=== PATIENT | female | born 1965 | race African-American/Black ===

== ENCOUNTER 2016-12-09 15:56 | Emergency (ER) | payer BC ==
[2016-12-09 16:14] VITALS: BP 152/103
[2016-12-09] MEDS ORDERED: Ketorolac 60 MG/2 ML SDV IM ONE (17:16)
[2016-12-09] MEDS ORDERED: diphenhydrAMINE 50 MG/ML SDV IM ONE (17:16)
[2016-12-09] MEDS ORDERED: Metoclopramide 10 MG/2 ML SDV IM ONE (17:16)
--- NOTE | 2016-12-09 17:30 | EDM.PDOC ---
ED HPI GENERAL MEDICAL PROBLEM - General Chief Complaint: Headache Stated Complaint: HEADACHE/VOMITING Time Seen by Provider: 12/09/16 17:00 Source of Information: Reports: Patient History Limitations: Reports: No Limitations - History of Present Illness INITIAL COMMENTS - FREE TEXT/NARRATIVE: 51-year-old female presents for evaluation treatment of a migraine headache. Patient reports headache began when she woke up this morning around 10 or 11 AM. She reports is located in between her eyes and spreads posteriorly. She reports associated symptoms of nausea, vomiting, blurry vision and photophobia. She reports she has a past medical history of migraine headaches and is currently on Imitrex. She took Imitrex without much symptom relief. She states that she vomited the Imitrex up. She reports this is similar to past migraines. The only difference is she is vomiting which she often only feels nauseated. No identifiable trigger. No fevers, neck pain, earaches or sore throat. Onset: Today Headache Pain Score (Numeric/FACES): 10 - Related Data Allergies Allergy/AdvReac Type Severity Reaction Status Date / Time No Known Allergies Allergy Verified 12/09/16 16:14 Home Meds: Home Meds Diltiazem HCl [Diltiazem 12Hr ER] 120 mg PO DAILY 03/24/16 [History] Venlafaxine [Effexor] 150 mg PO DAILY 03/24/16 [History] SUMAtriptan [Imitrex] 25 mg PO DAILY PRN 12/09/16 [History] Past Medical History Cardiovascular History: Reports: Hypertension Psychiatric History: Reports: Anxiety, Depression - Past Surgical History Female Surgical History: Reports: Endometrial Ablation Social & Family History - Family History Family Medical History: Noncontributory - Tobacco Use Smoking Status *Q: Never Smoker Second Hand Smoke Exposure: No - Caffeine Use Caffeine Use: Reports: Coffee, Soda - Recreational Drug Use Recreational Drug Use: No ED ROS GENERAL - Review of Systems Review Of Systems: See Below Constitutional: Reports: Other (reports photophobia). Denies: Fever, Decreased Appetite HEENT: Reports: Vision Change (reports blurry vision). Denies: Ear Pain, Throat Pain GI/Abdominal: Reports: Nausea, Vomiting Musculoskeletal: Denies: Neck Pain Neurological: Reports: Headache - Physical Exam Exam: See Below Exam Limited By: No Limitations General Appearance: Alert, WD/WN, No Apparent Distress Eye Exam: Bilateral Eye: EOMI, PERRL Ears: Normal External Exam, Normal Canal, Hearing Grossly Normal, Normal TMs Nose: Normal Inspection Throat/Mouth: Normal Inspection, Normal Lips, Normal Voice, No Airway Compromise Head Exam: Atraumatic, Normocephalic Neck: Normal Inspection, Non-Tender, Full Range of Motion Respiratory/Chest: No Respiratory Distress, Lungs Clear, Normal Breath Sounds Cardiovascular: Normal Peripheral Pulses, Regular Rate, Rhythm, No Murmur Neuro Exam (Abbreviated): Alert, Oriented, CN II-XII Intact, Normal Cognition Psychiatric: Normal Affect, Normal Mood Skin Exam: Warm, Dry, Normal Color Course - Vital Signs Last Recorded V/S: Last Vital Signs Temp 35.9 C 12/09/16 16:09 Pulse 78 12/09/16 18:57 Resp 16 12/09/16 18:57 BP 152/103 H 12/09/16 16:09 Pulse Ox 98 12/09/16 18:57 - Orders/Labs/Meds Meds: Medications Discontinued Medications Generic Name Dose Route Start Last Admin Trade Name Jeffrey PRN Reason Stop Dose Admin Diphenhydramine HCl 50 mg 12/09/16 17:16 12/09/16 17:25 Benadryl IM 12/09/16 17:17 50 mg ONETIME ONE Administration Ketorolac Tromethamine 60 mg 12/09/16 17:16 12/09/16 17:25 Toradol IM 12/09/16 17:17 60 mg ONETIME ONE Administration Metoclopramide HCl 10 mg 12/09/16 17:16 12/09/16 17:24 Reglan IM 12/09/16 17:17 10 mg ONETIME ONE Administration - Re-Assessments/Exams Free Text/Narrative Re-Assessment/Exam: 12/09/16 18:32 at this point the patient's headache is now a 2 out of 10. She feels comfortable going home. Discharge instructions as documented. Departure - Departure Time of Disposition: 18:38 Disposition: Home, Self-Care 01 Condition: Good Clinical Impression: Migraine - Discharge Information Instructions: Migraine Headache, [id number] Referrals: Josy Sanchez FLOTATION TENDER HELPER [Primary Care Provider] - Forms: ED Department Discharge, ED Return to Work/School Form Additional Instructions: go home and rest in a dark quiet room. make sure you are drinking plenty of fluids. Continue with your current plan of care. follow-up with your primary care provider for further management. Please return to the ER if your symptoms change or worsen.
== END 2016-12-09 18:58 | disposition home or self-care (01) ==
LOC: JD.ED 15:56
DX: G43.909 Migraine, unspecified, not intractable, without status migrainosus (principal); I10 Essential (primary) hypertension; Z79.899 Other long term (current) drug therapy
CPT/HCPCS: 96372; 99283; J1200; J1885; J2765

== ENCOUNTER 2017-07-29 17:02 | Emergency (ER) | payer BC ==
[2017-07-29 17:14] VITALS: BP 144/98
[2017-07-29] MEDS ORDERED: diphenhydrAMINE 50 MG/ML SDV IM ONE (17:38)
[2017-07-29] MEDS ORDERED: Ketorolac 60 MG/2 ML SDV IM ONE (17:38)
[2017-07-29] MEDS ORDERED: Metoclopramide 10 MG/2 ML SDV IM ONE (17:38)
--- NOTE | 2017-07-29 17:45 | EDM.PDOC ---
ED HPI GENERAL MEDICAL PROBLEM - General Chief Complaint: Headache Stated Complaint: HEADACHE Time Seen by Provider: 07/29/17 17:20 Source of Information: Reports: Patient History Limitations: Reports: No Limitations - History of Present Illness INITIAL COMMENTS - FREE TEXT/NARRATIVE: 52-year-old female presents for evaluation and treatment of a migraine headache. Patient reports that after waking up she appreciated a migraine headache. She works nights and woke up around noon. Migraine started shortly afterwards, around 1300. Currently rates pain as 8/10. States his starts in the front near her sinuses and extends behind her head. Reports photophobia, phonophobia and nausea. No vomiting, vision changes, fevers, cough or chills. Patient has a history of migraine headaches. She is currently on Imitrex for these. She did take 2 doses prior to arrival in the ER which normally helps with her migraines. She was unable to get any relief with these. She has been seen in the ER on one of their location for migraine. Resolved well with IM Benadryl, Toradol and Reglan. Headache Pain Score (Numeric/FACES): 8 - Related Data Allergies Allergy/AdvReac Type Severity Reaction Status Date / Time No Known Allergies Allergy Verified 12/09/16 16:14 Home Meds: Home Meds Diltiazem HCl [Diltiazem 12Hr ER] 120 mg PO DAILY 03/24/16 [History] Venlafaxine [Effexor] 150 mg PO DAILY 03/24/16 [History] SUMAtriptan [Imitrex] 25 mg PO DAILY PRN 12/09/16 [History] Past Medical History Cardiovascular History: Reports: Hypertension Neurological History: Reports: Migraines Psychiatric History: Reports: Anxiety, Depression - Past Surgical History Female Surgical History: Reports: Breast Reduction, Endometrial Ablation Social & Family History - Family History Family Medical History: Noncontributory - Tobacco Use Smoking Status *Q: Never Smoker - Caffeine Use Caffeine Use: Reports: Coffee, Energy Drinks - Recreational Drug Use Recreational Drug Use: No ED ROS GENERAL - Review of Systems Review Of Systems: See Below Constitutional: Denies: Fever HEENT: Reports: Other (reports photophobia and phonophobia). Denies: Ear Pain, Throat Pain, Vision Change Respiratory: Denies: Cough GI/Abdominal: Reports: Nausea. Denies: Vomiting Neurological: Reports: Headache - Physical Exam Exam: See Below Exam Limited By: No Limitations General Appearance: Alert, WD/WN, No Apparent Distress Eye Exam: Bilateral Eye: EOMI, Normal Inspection, PERRL Ears: Normal External Exam, Normal Canal, Hearing Grossly Normal, Normal TMs Nose: Normal Inspection Throat/Mouth: Normal Inspection, Normal Lips, Normal Oropharynx, Normal Voice, No Airway Compromise Head Exam: Atraumatic, Normocephalic Neck: Normal Inspection, Supple, Non-Tender, Full Range of Motion Respiratory/Chest: No Respiratory Distress, Lungs Clear, Normal Breath Sounds Cardiovascular: Normal Peripheral Pulses, Regular Rate, Rhythm, No Murmur Neuro Exam (Abbreviated): Alert, Oriented, Normal Cognition, Normal Gait Psychiatric: Normal Affect, Normal Mood Skin Exam: Warm, Dry, Normal Color Course - Vital Signs Last Recorded V/S: Last Vital Signs Temp 36.4 C 07/29/17 17:12 Pulse 67 07/29/17 17:12 Resp 20 07/29/17 17:12 BP 144/98 H 07/29/17 17:12 Pulse Ox 97 07/29/17 17:12 - Orders/Labs/Meds Meds: Medications Discontinued Medications Generic Name Dose Route Start Last Admin Trade Name Freq PRN Reason Stop Dose Admin Diphenhydramine HCl 50 mg 07/29/17 17:38 07/29/17 18:01 Benadryl IM 07/29/17 17:39 50 mg ONETIME ONE Administration Ketorolac Tromethamine 60 mg 07/29/17 17:38 07/29/17 18:00 Toradol IM 07/29/17 17:39 60 mg ONETIME ONE Administration Metoclopramide HCl 10 mg 07/29/17 17:38 07/29/17 17:59 Reglan IM 07/29/17 17:39 10 mg ONETIME ONE Administration - Re-Assessments/Exams Free Text/Narrative Re-Assessment/Exam: 07/29/17 18:43 Patient reports migraine is now a 3 out of 10. She feels comfortable going home at this time. Discharge instructions as documented. Departure - Departure Time of Disposition: 18:43 Disposition: Home, Self-Care 01 Condition: Good Clinical Impression: Migraine - Discharge Information Instructions: Migraine Headache, [id number] Referrals: Josy Sanchez FRAME STRAIGHTENER [Primary Care Provider] - Forms: ED Department Discharge Additional Instructions: Go home and rest in a dark quiet room. make sure you are drinking plenty of fluids. Continue with your current medications as needed for migraine. Follow-up with your primary care provider as needed. Please return to the ER if your symptoms change or worsen.
== END 2017-07-29 18:55 | disposition home or self-care (01) ==
LOC: JD.ED 17:02
DX: G43.909 Migraine, unspecified, not intractable, without status migrainosus (principal); I10 Essential (primary) hypertension; F41.9 Anxiety disorder, unspecified; F32.9 Major depressive disorder, single episode, unspecified
CPT/HCPCS: 96372; 99283; J1200; J1885; J2765